=== PATIENT | female | born 1980 ===

== ENCOUNTER 2022-05-29 13:36 | Emergency (ER) | payer SELFPAY ==
--- NOTE | 2022-05-29 13:58 | Consultation ---
History of Present Illness Consult date: 05/29/22 History of present illness: [facility] Consult Note # Demographics Consult Type: Acute Stroke Level 1 (0-4.5 hrs) Patient Location: Emergency Room First Name: Aishwarya Last Name: Myra Date of : 1980 Age: 42 Gender: Female Facility: [facility] Time of Initial Page (Eastern Time): 05/29/2022, 13:38 Time of Return Call (Eastern Time): 05/29/2022, 13:38 # HPI Chief Complaint: speech changes headache weakness (focal) History: Per EMS, patient reportedly had headache earlier this morning. Around 1pm, per girlfriend's report to EMS, patient fell to floor, groaning & moving on floor with right-sided weakness & aphasia. Last Known Normal: I have collected independent history specific to time last normal or last known well. We have collaborated with the provider and at this time, we have the most current timeline with the information that is available. 1pm Duration: constant minutes hours # Scores Time of exam and NIHSS ( Time): 05/29/2022, 13:41 Level of Consciousness 1a: [0] = Alert; keenly responsive LOC Questions 1b: [2] = Answers neither correctly LOC Commands 1c: [2] = Performs neither correctly Best Gaze 2: [0] = Normal Visual 3: [0] = No visual loss Facial Palsy 4: [2] = Partial paralysis Motor Arm Left 5a: [0] = No drift Motor Arm Right 5b: [4] = No movement Motor Leg Left 6a: [0] = No drift Motor Leg Right 6b: [4] = No movement Limb Ataxia 7: [0] = Absent Sensory 8: [1] = Cldu-cz-kxahsvrt sensory loss Best Language 9: [3] = Mute Dysarthria 10: [2] = Severe dysarthria Extinction and Inattention 11: [0] = No abnormality NIHSS Total: 20 Modified [place] Scale (mRS) pre-stroke: [0] = No Symptoms Modified [place] Scale total: 0 VAN Screening: Positive # Exam SBP: 192 DBP: 110 Mental Status: awake does not follow commands Language: aphasia Cranial Nerves: right facial droop # ROS Unable to obtain ROS: altered mentation Aphasic # PMH-FH-SH Past Medical History: hypertension Bipolar Social History: smoker Medications: No antithrombotics or anticoagulants reported On hormonal control per EMS Allergies: NKDA # Data Glucose: [address] personally read by me ( Time): 05/29/2022, 13:[address]: no bleed MCA sign preliminarily reviewed by me, please refer to radiology read for official reading L MCA hyperdense # Assessment Impression: Ischemic Stroke (Acute) # Plan Thrombolytic/Intervention: IV thrombolytic and possible IA candidate Thrombolytic Dosing: IV alteplase 0.9 mg/kg, max dose 90 mg; 10% of dose given over 1 minute IVP, remaining 90% given as infusion over 1 hour Possible IA Candidate: signs and symptoms of LVO CTA pending Time IV Thrombolytic Recommended (): 05/29/2022, 13:53 Labs: CBC comprehensive metabolic panel ESR hemoglobin A1c lipid panel troponin TSH urine drug screen ua test Imaging: (urgency: STAT): CT Angiogram Head and CT Angiogram Neck AND call back with results if abnormal Imaging: (urgency: routine): MRI Brain without contrast Diagnostic Test: echo without bubble study Therapy/Evaluation: NPO until swallow evaluation PT/OT evaluation speech/swallow consultation Medication: aspirin 81 mg daily start statin with goal of LDL < 70 DVT Prophylaxis: SCD chemical DVT prophylaxis Thrombolytic Administration Recommendations: Unable to obtain informed consent due to medical condition. No family available. In my opinion, benefits of IV thrombolytic therapy outweigh risks. I have collected independent history specific to time last normal or last known well. We have collaborated with the ED provider and at this time, we have the most current timeline with the information that is available. BP goal< 180/105 for 24hrs post Thrombolytic administration Use Labetolol 10-20mg IV prn or Nicardipine gtt to maintain BP parameters No antiplatelets or anticoagulants for next 24 hrs unless indicated for emergent IA procedure or other life threatening situation ICU admission Other: If patient has any neurological deterioration please call me back immediately telemetry monitoring I have discussed my recommendations with the referring provider Additional Recommendations: Medical Insurance Coding Specialist tobacco cessation Disposition: transfer to IA capable facility # Logistics Telemedicine: Interactive 2 way audio and visual telecommunication technology was utilized during this visit # Demographics First Name: Aishwarya Last Name: Myra Facility: [facility] Medications and Allergies Allergies Allergy/AdvReac Type Severity Reaction Status Date / Time No Known Allergies Allergy Unverified 05/29/22 13:37
[2022-05-29] MEDS ORDERED: ALTEPLASE 100 MG INJ KIT IV ONE ×2 (14:09)
[2022-05-29] MEDS ORDERED: SODIUM CHLORIDE 0.9% 50 ML IVPB IV ONE (14:09)
--- NOTE | 2022-05-29 14:34 | Emergency Department Report ---
HPI - General Chief Complaint: Neuro Symptoms/Deficit PUI?: No Time Seen by Provider: 05/29/22 13:38 - HPI HPI: 42-year-old female with a history of hypertension, bipolar disorder, brought in by EMS as stroke notification. Per EMSs report, patient is nonverbal and has been so since they arrived at the scene. He EMS states that they have received verbal report of HPI from patient's girlfriend. Of note she [facility] time to provide additional history. Per EMS, girlfriend reports the patient had been complaining of headache and at 1 PM was observed by her to fall to the ground, become aphasic and have paralysis of her right arm and right lower extremity. She was not able to walk. EMS reports that the patient is aphasic and has not moved her right side since their arrival. Fingerstick glucose is 83 mg/dL. Unable to assess pain scale. ED Past Medical Hx - Past Medical History Previous Medical History?: Yes Hx Hypertension: Yes Additional medical history: Bipolar disorder per EMS - Medications Home Medications: Home Medications Medication Instructions Recorded Confirmed Last Taken Type Cyclobenzaprine [Flexeril] 5 mg PO HS 05/29/22 05/29/22 Unknown History Norethindrone Acetate [Aygestin] 5 mg PO 05/29/22 Unknown History Verapamil ER [Calan Sr] 240 mg PO DAILY 05/29/22 05/29/22 Unknown History busPIRone [Buspar] 5 mg PO BID 05/29/22 05/29/22 Unknown History traZODone [Desyrel] 100 mg PO QHS 05/29/22 05/29/22 Unknown History ED Review of Systems ROS: Stated complaint: STROKE Other details as noted in HPI Comment: Unobtainable due to pts medical conditions Physical Exam - Physical Exam Physical Exam: Gen: pt is well appearing, no acute distress, intermittent spastic movements of patient's right lower extremity observed HEENT: Normocephalic atraumatic pupils equally round and reactive to light extraocular muscles intact sclera anicteric Neck: Full range of motion, no midline spinal tenderness palpation, no JVD, no carotid bruits, no nuchal rigidity CVS: S1-S2 regular rate and rhythm with no gallops rubs or murmurs, chest wall nontender Pulmonary: Clear to auscultation bilaterally, no wheezes rales or rhonchi Abdomen: Soft nondistended nontender no guarding or rebound tenderness, no palpable deformities or step-offs, normal active bowel sounds, no hepatos plenomegaly, no pulsatile masses : Deferred Extremities: No cyanosis no clubbing no edema, intact distal peripheral pulses, Integumentary: Skin normal, no petechia no purpura no abscess no lacerations no evidence of trauma no evidence of infection Neuro: Patient is aphasic, she is intermittently awake but appears sleepy, 5 out of 5 motor strength left upper extremity left lower extremity, 0 out of 5 motor strength, right upper extremity right lower extremity, NIH score 20 Psych: Patient is calm, cooperative, intermittently sleepy but easily arousable, ED Course - Reevaluation(s) Reevaluation #1: 05/29/22 14:34 pt remains asphasic; opens eyes to name being called, will move LUE/LLE; NIH score remains 20; Reevaluation #2: 05/29/22 3:53 PM: Per verbal report from community organization directorRashmi. She has called the local air ambulance service. Due to inclement weather, they are unable to come to fly the patient to [place]. 3:55 PM: I telephoned car 18 directly at [phone]. Per verbal report given, they are not able to transport the patient. They only have 1 ambulance unit available [facility] and that cannot be dispatched to come to [facility] at this time. No further ambulance service available per car 18. Advised that another ACLS unit be telephone. I had an extensive discussion with the patient's mother and father concerning this and inform that that we are attempting aggressively to have the patient transported but due to the weather and lack of available transportation services, we do not have a confirmed ambulance at this time. We will continue provide an update. They verbalized understanding. 03:58pm unit secretary reports that return call has been received. ALS unit, via [facility] ambulance service, will arrive in approximately 30 to 40 minutes to transport the patient to [place]. Reevaluation #3: 05/29/22 16:19 pt has no movement of her RUE/RLE; her mentation has slightly improved; she is dysarthric, speaking incoherently. Movement to LUE/LLE remains normal and unchanged; Reevaluation #4: 05/29/22 16:24 [facility] unit has presented. Pt's vitals remain stable, and unchanged. Systolic bp remains <180mmHg. Pt's NIH score is 19. Patient is able to speak but does not know where she is. She is severely dysarthric. - Consultations Consultation #1: 05/29/22 [id number]: Call received from Dr. Prakash, stroke telemetry neurologist. Patient has flaccid paralysis in her right upper extremity right lower extremity and is aphasic. Her NIH score per his assessment is 20. He states that the patient has a left MCA hyperdense sign and will need a thrombectomy and is advising transfer. He also states that he is advising the patient receive emergent tPA. Consultation #2: 05/29/22 [id number]: Per community organization director Randy Lucia is on critical/neurointensive diversion. network development coordinator will not permit me to speak to the stroke neurologist 03:18pm: Return call from [place] received. 03;25pm: I spoke to Dr. Grace (stroke neurologist) and Dr. Aldana (neurointensivist). NO beds available. Im advised to call [facility] and/or [place], to ascertain if 05/29/22 03:59pm: Return call received from Dr. Aldana and Dr. Grace. Dr. Aldana reports that he has been able to create a neuro critical care bed for the patient and he states that he will not accept the patient for transfer. Case again reviewed with them. He would like the images pushed through to [facility] system. He advises that the patient's blood pressure is to be kept below 180. Patient's current blood pressure of 170/112 is within acceptable range and therefore no Cardene drip is warranted. He states that he would like the patient to be flown to [place] emergently where she will go to interventional radiology upon arrival. He is requesting a call back when the patient's labs have resulted. ED Medical Decision Making - Lab Data Result diagrams: 05/29/22 15:00 05/29/22 15:00 - Radiology Data Radiology results: report reviewed - Medical Decision Making 42-year-old female with a history of bipolar disorder, hypertension, brought in by EMS for evaluation of acute stroke and that, as manifested by aphasia and right upper extremity right lower extremity hemiparesis. Vital stable. Call received from Dr. Mckeon, on-call telemetry neurologist, who states the patient has no acute intracranial hemorrhage but has a left MCA hyperdense sign. He is advising the patient receive tPA as well as be transferred for thrombectomy. Patient given tPA here with minimal improvement in her ability to speak but with no manifested in an motor neurological strength in her right upper and right lower extremity. Patient's ED course remain prolonged due to difficulty in finding an accepting receiving facility as well as in having the patient transported emergently due to lack of available ALS units for ground transportation, and inability to transport the patient emergently via air transport (due to poor flying weather conditions). Pt has been accepted for emergent transfer and will be transported by [facility]. She will be taken emergently to [facility], IR lab, and admitted to the neurocritical care unit via Dr. Grace/Dr. Aldana. Critical Care Time: Yes Critical care time in (mins) excluding proc time.: 45 Critical care attestation.: If time is entered above; I have spent that time in minutes in the direct care of this critically ill patient, excluding procedure time. ED Disposition Clinical Impression: Hemiplegia affecting dominant side, Acute stroke due to embolism of left middle cerebral artery Disposition: 02 [facility]ORT TERM [facility]OS[facility] Is pt being admited?: Yes Does the pt Need Aspirin: No Condition: Stable
--- NOTE | 2022-05-29 15:04 | Cat Scan Report ---
CT BRAIN: 05/29/2022 INDICATION / CLINICAL INFORMATION: nonverbal, r sided weakness, last normal: 1pm. COMPARISON: None available. FINDINGS: BRAIN/INTRACRANIAL STRUCTURES: Unenhanced CT images of the brain demonstrate no evidence of acute abn ormality. Ventricles and sulci are normal in size and shape. There is no evidence of ischemic injury, hemorrhage, or mass. There are no abnormal extra-axial fluid collections. There is relative hyperdensity present along the course of the left middle cerebral artery, which can be an indication of acute thrombosis. EXTRACRANIAL STRUCTURES: Unremarkable. IMPRESSION: 1. No evidence of parenchymal ischemic change. 2. Possible left MCA hyperdensity. All CT scans at this location are performed using dose reduction to ALARA by means of automated expos ure control. Signer Name: Gabriel Craven MD Signed: 05/29/2022 2:59 PM Workstation Name: [id number]
--- NOTE | 2022-05-29 15:10 | Cat Scan Report ---
CTA HEAD WITH CONTRAST DATE HISTORY: R sided weakness, last normalp 1pm. COMPARISON: None. TECHNIQUE: All CT scans at this location are performed using CT dose reduction for ALARA by means of automated exposure control.. 3-D/MIP reformats postprocessed. Percentage stenosis is determined by d irect quantitative measurements of diseased internal carotid artery diameter compared with normal dis steven internal carotid artery reference segments or by criteria similar to NASCET where applicable. CONTRAST: 100 ml of Omnipaque 350 FINDINGS: CTA HEAD: Intracranial vertebral arteries: No significant abnormality. Basilar artery: No significant abnormality. Posterior cerebral arteries: No significant abnormality. Intracranial internal carotid arteries: No significant abnormality. Anterior cerebral arteries: No significant abnormality. Middle cerebral arteries: There is no enhancement of the left middle cerebral artery and its proximal branches, consistent with complete occlusion. The right MCA is unremarkable. Dural venous sinuses:Not optimally opacified. No significant abnormality. Additional findings: None. IMPRESSION: 1. Left MCA occlusion Signer Name: Gabriel Craven MD Signed: 05/29/2022 3:05 PM Workstation Name: [email or web address]
--- NOTE | 2022-05-29 15:15 | Cat Scan Report ---
CTA NECK WITH CONTRAST 05/29/2022 INDICATION / CLINICAL INFORMATION: R sided weakness, aphasia. COMPARISON: None. TECHNIQUE: Routine CTA of the neck is performed. 3-D/MIP reformats were postprocessed. Percentage st enosis is determined by direct quantitative measurements of diseased internal carotid artery diameter compared with normal distal internal carotid artery reference segments or by criteria similar to [place] CET where applicable. All CT scans at this location are performed using CT dose reduction for ALARA b y means of automated exposure control. CONTRAST: 100 ml of Omnipaque 350 FINDINGS: Carotid bifurcations: At the left bifurcation, there is evidence of occlusion of the proximal ICA jus t beyond the bifurcation. The right bifurcation shows no evidence of stenosis. Carotid arteries: Tortuosity of the right internal carotid artery is present with some focal kinking at the C2 level. There is no evidence of stenosis. Cervical vertebral arteries: No significant abnormality. The left vertebral artery has a direct origi n from the aortic arch, a normal variant Aortic arch: No significant abnormality. None. IMPRESSION: Proximal left ICA occlusion Signer Name: Gabriel Craven MD Signed: 05/29/2022 3:12 PM Workstation Name: [id number]
[2022-05-29 15:45] LABS: Basophils % (Auto) 0.4 % (0.0-1.8); Eosinophils % (Auto) 0.7 % (0.0-4.3); Hematocrit 50.1 % (30.3-42.9); Hemoglobin 16.9 gm/dl (10.1-14.3); Lymphocytes % (Auto) 17.9 % (13.4-35.0); Mean Corpuscular HGB Conc 34 % (30-34); Mean Corpuscular Volume 91 fl (79-97); Monocytes % (Auto) 9.8 % (0.0-7.3); Platelet Count 344 K/mm3 (140-440); Red Cell Distribution Width 13.4 % (13.2-15.2)
[2022-05-29 15:46] LABS: Eosinophils # (Auto) 0.1 K/mm3 (0.0-0.4); Lymphocytes # (Auto) 1.7 K/mm3 (1.2-5.4); Monocytes # (Auto) 0.9 K/mm3 (0.0-0.8)
[2022-05-29 15:55] LABS: Alanine Aminotransferase 17 units/L (7-56); Albumin 4.5 g/dL (3.9-5); BUN/Creatinine Ratio 9; Blood Urea Nitrogen 9 mg/dL (7-17); Calcium 9.1 mg/dL (8.4-10.2); Hemolysis Index 16
[2022-05-29 15:56] LABS: Bilirubin,Direct < 0.2 mg/dL (0-0.2)
[2022-05-29] MEDS ORDERED: niCARdipine 50 MG in SODIUM CHLORIDE 0.9% 250ML 230 ML IV SCH (16:00)
[2022-05-29 16:04] LABS: INR 1.09 (0.87-1.13)
[2022-05-29 17:41] VITALS: BP 172/109
--- NOTE | 2022-06-01 09:47 | Electrocardiograph Report ---
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
== END 2022-05-29 16:55 | disposition short-term general hospital (02) ==
LOC: ED 13:36
DX: I63.412 Cerebral infarction due to embolism of left middle cerebral artery (principal); G81.91 Hemiplegia, unspecified affecting right dominant side; I10 Essential (primary) hypertension; F31.9 Bipolar disorder, unspecified; Z79.899 Other long term (current) drug therapy
CPT/HCPCS: 36415; 37195; 70450; 70496; 70498; 80048; 80076; 84703; 85025; 85610; 85730; 93005; 99291; J2997; J3490; J7050; Q9967; 80320; G0480